=== PATIENT | male | born 2000 | race Caucasian/White ===

== ENCOUNTER 2019-01-13 05:59 | Emergency (ER) | payer SELFPAY ==
[~2019-01-13] VITALS: Ht 152.4 cm; Wt 63.0 kg
[2019-01-13] MEDS ORDERED: DIAZEPAM 5 MG TABLET PO ONE (07:00)
[2019-01-13] MEDS ORDERED: KETOROLAC 60MG/2ML VIAL IM ONE (07:00)
[2019-01-13 08:48] VITALS: BP 110/67
== END 2019-01-13 08:51 | disposition home or self-care (01) ==
LOC: ER 05:59
DX: M54.42 Lumbago with sciatica, left side (principal)
CPT/HCPCS: 96372; 99283; J1885